=== PATIENT | female | born 1970 | race African-American/Black ===

== ENCOUNTER 2019-04-09 04:47 | Day surgery (SDC) | payer BC ==
[2019-04-05 13:16] VITALS: BMI 31.7
--- NOTE | 2019-04-09 07:32 | HP ---
History & Physical Update - Physical Physical: No Change - Assessment Assessment: No Change - Plan Plan: No Change (H&P was reviwed , no changes ,for hysteroscopy D&C, polypectomy , submucos myoma resection)
[2019-04-09] MEDS ORDERED: PROPOFOL 20 ML ONE (09:54)
[2019-04-09] MEDS ORDERED: MIDAZOLAM HCL 2 MG/2 ML SINGLE DOSE VIAL ONE (09:54)
[2019-04-09] MEDS ORDERED: KETOROLAC TROMETHAMINE 30 MG/1 ML VIAL ONE (10:35)
[2019-04-09] MEDS ORDERED: DEXAMETHASONE SOD PHOSPHATE 4 MG/1 ML VIAL ONE (10:35)
[2019-04-09] MEDS ORDERED: IBUPROFEN 600 MG TABLET (FP) PO PRN (11:01)
[2019-04-09] MEDS ORDERED: IBUPROFEN 800 MG/8 ML IJ IVPB PRN (11:01)
[2019-04-09] MEDS ORDERED: oxyCODONE HCL 5 MG TABLET PO PRN ×2 (11:01→11:56)
[2019-04-09] MEDS ORDERED: ONDANSETRON 4 MG/2 ML VIAL IVPUSH PRN ×2 (11:01→11:56)
--- NOTE | 2019-04-09 11:06 | OP ---
Operative Note - Note: Operative Date: 04/09/19 Pre-Operative Diagnosis: menometrorrhagia, fibroid uterus , EM polyp Operation: hysteroscopy, D&C , polypectomy Findings: cx clean uterus enlarged ,irregular , 10 weeks , with fibroids Surgeon: Nate Hutchins Anesthesia: General Specimens Removed: EMC, EM polyp Estimated Blood Loss (mls): 25 Blood Volume Replaced (mls): 0 Operative Report Dictated: Yes
[2019-04-09 11:15] VITALS: TEMP 98
[2019-04-09] MEDS ORDERED: ELECTROLYTE-148 SOLN 1,000 ML IV SCH (11:15)
[2019-04-09] MEDS ORDERED: LACTATED RINGERS SOLUTION 1,000 ML IV SCH (12:00)
[2019-04-09 13:20] VITALS: BP 123/71; PULSE 60
--- NOTE | 2019-04-09 13:56 | OP ---
DATE OF OPERATION: 04/09/2019 PREOPERATIVE DIAGNOSIS: Menometrorrhagia, fibroid uterus. POSTOPERATIVE DIAGNOSIS: Menometrorrhagia, fibroid uterus. PROCEDURE: Hysteroscopy, dilation and curettage, polypectomy. SURGEON: Nate Hutchins MD ANESTHESIA: General. ESTIMATED BLOOD LOSS: About 20 mL. DESCRIPTION OF PROCEDURE: Patient was taken to the operating room. Under adequate general anesthesia in dorsal lithotomy position, examination under anesthesia revealed external genitalia to be normal. Vagina was normal. Cervix was clean. No lesion. Uterus was 10 weeks' size, anteverted with irregular multiple fibroids. Adnexa, no masses were palpable. Then with a weighted speculum in the vagina, anterior lip of cervix was grasped with a single-tooth tenaculum. Cervix was slightly dilated and then hysteroscope was introduced. Visualization of endocervical canal appeared to be normal. There were 2 areas of increased growth and patchy endometrium at both lateral wall of the uterine wall in the lower uterus. Fundal area was visualized. No fibroid was seen. There was a small, floating polyp in the lower uterine segment. No other abnormality noted. Then hysteroscope was withdrawn. Cervix was gradually dilated with Hegar dilator and then a dilation and curettage was done then hysteroscope was reinserted. Re-visualization of the endometrium appeared to be clear of polyp. Patient tolerated procedure well. Left the OR in good condition. NATE HUTCHINS M.D. [id number]
--- NOTE | 2019-04-10 16:20 | PATH ---
Surgical Pathology Report Patient Name: CONOR MURRIETA [facility]. Rec. #: [id number] /Age/Gender: 1970 (Age: 48) / F Account: [id number] Location: [facility] SURGICAL Taken: 04/09/2019 Received: 04/09/2019 Reported: 04/10/2019 Physicians: Nate Hutchins M.D. Specimen(s) Received A: ENDOMETRIAL POLYP B: ENDOMETRIAL CURETTINGS Clinical History Excessive menstruation Final Diagnosis A. ENDOMETRIAL POLYP, EXCISION: ENDOMETRIAL AND ENDOCERVICAL POLYP. SEPARATE PROLIFERATIVE ENDOMETRIUM. SEPARATE ENDOCERVICAL TISSUE WITH MARKED SQUAMOUS METAPLASIA. B. ENDOMETRIAL CURETTINGS: ENDOMETRIAL POLYP. SEPARATE PROLIFERATIVE ENDOMETRIUM WITH SYNCYTIAL PAPILLARY CHANGE. SEPARATE ENDOCERVICAL TISSUE WITH SQUAMOUS METAPLASIA. Electronically Signed Kayla Johnson M.D. Gross Description A. Received in formalin labeled "endometrial polyp," is a 1.5 x 1.4 x 0.2 cm aggregate of montoya pink soft tissue fragments. The formalin is filtered and the specimen is entirely submitted in one cassette. B. Received in formalin labeled "endometrial curettings," is a 3.5 x 2.1 x 0.3 cm aggregate of montoya-brown soft tissue fragments admixed with mucus. The formalin is filtered and the specimen is entirely submitted in 2 cassettes. /04/09/201904/09/2019
== END 2019-04-09 13:21 | disposition home or self-care (01) ==
LOC: JASU-SURG 04:47
PROVIDERS: ATTEND Obstetrics & Gynecology
PROC: 0UJD8ZZ Inspection of Uterus and Cervix, Via Natural or Artificial Opening Endoscopic (ICD-10-PCS; 2019-04-09)
PROC: 0UB97ZX Excision of Uterus, Via Natural or Artificial Opening, Diagnostic (ICD-10-PCS; principal; 2019-04-09 09:45)
PROC: 0UDB7ZX Extraction of Endometrium, Via Natural or Artificial Opening, Diagnostic (ICD-10-PCS; 2019-04-09 09:45)
DX: N92.1 Excessive and frequent menstruation with irregular cycle (principal); N84.0 Polyp of corpus uteri; D25.9 Leiomyoma of uterus, unspecified
CPT/HCPCS: 84703; 88305-TC; 94760